=== PATIENT | female | born 1990 | race Caucasian/White ===

== ENCOUNTER → 2023-04-22 | Outpatient (CLI) | payer BC, SELFPAY ==
[2023-04-22 17:14] LABS: Erythrocyte Sedimentation Rate 21 mm/hr (0-30)
[2023-04-22 17:47] LABS: CRP < 2.90 mg/L (0.0-3.0); Free T3 2.6 pg/mL (2.18-3.98); T4 Free Direct 0.93 ng/dL (0.76-1.46); Thyroid Stim Hormone (TSH) 1.64 uIU/mL (0.358-3.74)
[2023-04-22 18:56] LABS: Vitamin B12 293 pg/mL (211-911)
[2023-04-25 14:08] LABS: ANTINUCLEAR ANTIBODIES DIRECT Negative (Negative)
[2023-04-27 16:10] LABS: B. henselae IgG Negative titer (Neg:<1:320); B. henselae IgM Negative titer (Neg:<1:100); B. quintana IgG Negative titer (Neg:<1:320); B. quintana IgM Negative titer (Neg:<1:100); CCP IgG Antibodies 0 units (0-19); Copper, Serum or Plasma 99 ug/dL (80-158); EBV Acute VCA IgM < 36.0 U/mL (0.0-35.9); EBV Nuclear Antigen IgG < 18.0 U/mL (0.0-17.9); Lyme IgG P18 Ab Absent (.); Lyme IgG P23 Ab Absent (.); Lyme IgG P28 Ab Absent (.); Lyme IgG P30 Ab Absent (.); Lyme IgG P39 Ab Absent (.); Lyme IgG P41 Ab Absent (.); Lyme IgG P45 Ab Absent (.); Lyme IgG P58 Ab Absent (.); Lyme IgG P66 Ab Absent (.); Lyme IgG P93 Ab Absent (.); Lyme IgG WB Interpretation Negative (.); Lyme IgM P23 Ab Absent (.); Lyme IgM P39 Ab Absent (.); Lyme IgM P41 Ab Absent (.); Lyme IgM WB Interpretation Negative (.); Mycoplasma Pneum AB IgG < 100 U/mL (0-99); Mycoplasma pneum. AB IgM < 770 U/mL (0-769); Thyroglobulin Antibody < 1.0 IU/mL (0.0-0.9); Thyroid Peroxidase AB 14 IU/mL (0-34); VITAMIN B6 16.1 ug/L (3.4-65.2); Zinc, Plasma or Serum 91 ug/dL (44-115)
== END | disposition home or self-care (01) ==
PROVIDERS: Visit Provider Nurse Practitioner Family
DX: F41.9 Anxiety disorder, unspecified (principal); R53.82 Chronic fatigue, unspecified; G47.00 Insomnia, unspecified; G90.A Postural orthostatic tachycardia syndrome [POTS]; A49.1 Streptococcal infection, unspecified site; D72.818 Other decreased white blood cell count
CPT/HCPCS: 36415; 82306; 82525; 82607; 82746; 83735; 84207; 84425; 84439; 84443; 84481; 84630; 85652; 86038; 86060; 86140; 86200; 86225; 86235; 86376; 86611; 86617; 86664; 86665; 86738; 86800